=== PATIENT | female | born 1955 | race African-American/Black ===

== ENCOUNTER 2017-07-11 11:12 | Outpatient (CLI) | payer OTHER ==
--- NOTE | 2017-07-12 17:32 | Mammography Report ---
DATE OF SERVICE: 07/11/2017 DIGITAL SCREENING MAMMOGRAM: 07/11/2017 CLINICAL INDICATION: A 62-year-old, for screening. COMPARISON: 05/2016, 12/2014, 11/2013, 11/2012, 09/2011, 06/2009. TECHNIQUE: Routine CC and MLO projections were obtained of the breasts. FINDINGS: The breasts demonstrate scattered fibroglandular densities bilaterally. Coarse and punctate, typically benign calcifications are present. No suspicious masses, clustered microcalcifications, or regions of architectural distortion are identified. IMPRESSION: BENIGN FINDINGS. RECOMMENDATION: ROUTINE ANNUAL SCREENING UNLESS OTHERWISE CLINICALLY INDICATED. BIRADS CATEGORY 2-BENIGN FINDINGS. STANDARD QUALIFYING STATEMENTS: 1. This examination was reviewed with the aid of Computer-Aided Detection (CAD). 2. A negative or benign imaging report should not delay biopsy if clinically suspicious findings are present. Consider surgical consultation if warranted. More than 5% of cancers are not identified by imaging. 3. Dense breasts may obscure an underlying neoplasm. TD: 07/12/2017 18:31
== END 2017-07-11 11:13 | disposition home or self-care (01) ==
LOC: DI 11:12
DX: Z12.31 Encounter for screening mammogram for malignant neoplasm of breast (principal)
CPT/HCPCS: 77067

== ENCOUNTER 2019-09-04 09:56 | Outpatient (CLI) | payer OTHER ==
--- NOTE | 2019-09-08 15:21 | Mammography Report ---
Reason: ROUTINE MAMMO Procedure Date: 09/04/2019 Accession Number: [id number] / [id number] Procedure: [facility] - Screening Mammo w/[facility] CPT Code: Final Report FULL RESULT: EXAM: Screening Mammo w/[facility] DATE: 09/04/2019 10:53 AM CLINICAL HISTORY: Routine screening TECHNIQUE: (B) - Bilateral CC and MLO views were obtained. COMPARISON: 07/11/2017, 06/01/2016, 12/28/2014, 11/27/2013, 11/25/2012, 09/27/2011 PARENCHYMAL PATTERN: (A) - The breasts demonstrate scattered fibroglandular densities bilaterally. FINDINGS: No significant interval change. There are no suspicious masses, calcifications, or areas of distortion. IMPRESSION: Negative examination. BI-RADS category 1. RECOMMENDATION: (ANNUAL) - Recommend routine annual screening mammography. BI-RADS CATEGORY: (1) - Negative. STANDARD QUALIFYING STATEMENTS: 1. This examination was not reviewed with the aid of Computer-Aided Detection (CAD). 2. A negative or benign imaging report should not preclude biopsy if clinically suspicious findings are present. 3. Dense breasts may obscure an underlying neoplasm. 4. This examination was reviewed with the aid of 3D breast imaging (tomosynthesis).
== END 2019-09-04 09:57 | disposition home or self-care (01) ==
LOC: DI 09:56
DX: Z12.31 Encounter for screening mammogram for malignant neoplasm of breast (principal)
CPT/HCPCS: 77063; 77067